=== PATIENT | male | born 1995 | race Caucasian/White ===

== ENCOUNTER 2017-10-05 17:46 | Observation (INO) | payer OTHER ==
[2017-10-05] MEDS ORDERED: fentaNYL 100 MCG/2 ML INJ IVP ONE (18:07)
[2017-10-05] MEDS ORDERED: NS 1,000 ML IV ONE (18:07)
[2017-10-05] MEDS ORDERED: ONDANSETRON 4 MG/2 ML VIAL IVP ONE (18:08)
[2017-10-05 18:21] LABS: % IMMATURE GRANULYOCYTES 0.2 % (0.0-1.1); ABSOLUTE IMMATURE GRANULOCYTES 0.02 10^3/uL (0.00-0.10); ADD DIFF? NO; ADD MORPH? NO; ADD SCAN? NO; ATYPICAL LYMPHOCYTE FLAG 0 (0-99); FRAGMENT RBC FLAG 0 (0-99); HEMATOCRIT 42.8 % (40.0-51.0); HEMOGLOBIN 15.7 g/dL (13.7-17.5); LEFT SHIFT FLG 0 (0-99); LIPEMIA HEMOLYSIS FLAG 90 (0-99); MEAN CELL HEMOGLOBIN 33.1 pg (27.9-34.1); MEAN CELL HEMOGLOBIN CONCENTR. 36.7 g/dL (32.4-36.7); MEAN CELL VOLUME 90.1 fL (81.5-99.8); MEAN PLATELET VOLUME 8.7 fL (8.7-11.7); PLATELET CLUMPS FLAG 10 (0-99); PLATELET COUNT 225 10^3/uL (150-400); RED BLOOD CELL COUNT 4.75 10^6/uL (4.40-6.38); RED CELL DISTRIBUTION WIDTH 11.9 % (11.5-15.2)
[2017-10-05] MEDS ORDERED: IOPAMIDOL (ISOVUE-300) 100 ML BTL ONE (18:24)
[2017-10-05 18:39] LABS: ANION GAP 16 mEq/L (8-16); CALCIUM 9.4 mg/dL (8.5-10.4); CARBON DIOXIDE 24 mEq/l (22-31); CHLORIDE 102 mEq/L (97-110); CREATININE 0.8 mg/dL (0.7-1.3); GLOMERULAR FILTRATION RATE > 60; GLUCOSE 91 mg/dL (70-100); POTASSIUM 4.2 mEq/L (3.5-5.2); SODIUM 142 mEq/L (134-144)
[2017-10-05] MEDS ORDERED: ERTAPENEM 1 GM VIAL IVP ONE (19:44)
[2017-10-05] MEDS ORDERED: HYDROmorphONE/DILAUDID 2 MG/ML INJ IVP ONE (20:04)
--- NOTE | 2017-10-05 20:04 | EDPHY ---
H & P Stated Complaint: ABD PAIN Time Seen by Provider: 10/05/17 17:50 HPI/ROS: CHIEF COMPLAINT: Abdominal pain HISTORY OF PRESENT ILLNESS: 22-year-old male reports that he woke up around 3 o 'clock in the morning (18 hr ago) with generalized abdominal pain, nausea, vomiting x1. He is really unable to get a good night sleep. As the morning progressed the pain seemed to radiate to the right mid quadrant. No fever. No further vomiting. Patient does feel somewhat nauseous. No diarrhea. Relatively normal appetite and the patient had a full dinner at 4:00 p.m. Patient reports is uncomfortable driving to the emergency department. He feels better when he is somewhat curled up. No urinary complaints. No hematuria. No testicular pain. Patient has otherwise been well. No recent fevers or chills, no recent upper respiratory infection, chest pain, cough, shortness of breath, palpitations, diarrhea, or other symptoms. REVIEW OF SYSTEMS: Aside from elements discussed in the HPI, a comprehensive 10-point review of systems was reviewed and is negative. PAST MEDICAL HISTORY: Denies. No prior surgeries. SOCIAL HISTORY: 1 alcoholic beverage last night. No illicit drug use. VITAL SIGNS Reviewed by me. GENERAL: Well-developed, well-nourished, resting comfortably in no respiratory distress. HEENT: Atraumatic. Eyes: No icterus, no injection. Mouth: moist mucous membranes. No erythema or lesions. Neck: supple with no adenopathy. LUNGS: Clear to auscultation bilaterally, no wheezes, rhonchi or rales. CARDIAC: Regular rate and rhythm, no rubs, murmurs or gallops. ABDOMEN: Soft, tenderness in the right mid and lower quadrants. No guarding or rebound. No distension. : Normal male exam. No testicular tenderness, swelling. BACK: No CVA tenderness. EXTREMITIES: No trauma. No edema. Range of motion is normal throughout. NEURO: Alert and oriented, grossly nonfocal. SKIN: Warm and dry, no rash. PSYCHIATRIC: Normal mentation, no agitation. - Personal History Tetanus Vaccine Date: WITHIN 10 YRS - Medical/Surgical History Hx Asthma: No Hx Chronic Respiratory Disease: No Hx Diabetes: No Hx Cardiac Disease: No Hx Renal Disease: No Hx Cirrhosis: No Hx Alcoholism: No Hx HIV/AIDS: No Hx Splenectomy or Spleen Trauma: No Other PMH: DENIES PMH/PSH - Social History Smoking Status: Never smoked Constitutional: Initial Vital Signs Temperature (C) 36.7 C 10/05/17 17:50 Heart Rate 98 10/05/17 17:50 Respiratory Rate 16 10/05/17 17:50 Blood Pressure 133/66 H 10/05/17 17:50 O2 Sat (%) 94 10/05/17 17:50 O2 Delivery Mode Room Air Allergies/Adverse Reactions: No Known Allergies Allergy (Verified 10/05/17 17:59) Home Medications: Medication Instructions Recorded No Medications [NO HOME 1 ea [facility] 12/15/11 MEDICATIONS] Medical Decision Making - Diagnostics Imaging Results: Imaging Impressions Abdomen CT 10/05/17 18:07 Impression: 1. Appendicitis suspected right upper iliac fossa with the appendix extending superiorly to the lower margin of the liver with periappendiceal inflammatory change. 2. Mild stable borderline splenomegaly. Findings discussed with Jessika Ingram MD at 19:34 hour, 10/05/2017. ED Course/Re-evaluation: 22-year-old male with less than 24 hr history of abdominal pain which has been persistent now in the right lower quadrant. Concern for appendicitis. IV was placed in the patient received fentanyl for pain, and Zofran for nausea. CBC and chemistries are unremarkable. CT scan is positive for appendicitis. Patient's course was discussed with Dr. Franklyn Holland. Patient was transferred POV to [facility] for admission to [facility] with operative intervention planned for later this evening. Patient is aware that he is NPO. Invanz was given prior to transfer. Differential Diagnosis: After obtaining the patient's history and performing an examination, differential diagnosis considered included but was not limited to appendicitis, cholecystitis, gastroenteritis, mesenteric adenitis, kidney stones, bowel obstruction, urinary tract infections and other causes. Consult/Admit Bed Type: Dr. Franklyn Holland, [facility] - Data Points Laboratory Results: Laboratory Results 10/05/17 18:14 10/05/17 18:14 10/05/17 10/05/17 18:14 18:14 WBC 8.85 10^3/uL 10^3/uL (3.80-9.50) RBC 4.75 10^6/uL 10^6/uL (4.40-6.38) Hgb 15.7 g/dL g/dL (13.7-17.5) Hct 42.8 % % (40.0-51.0) MCV 90.1 fL fL (81.5-99.8) MCH 33.1 pg pg (27.9-34.1) MCHC 36.7 g/dL g/dL (32.4-36.7) RDW 11.9 % % (11.5-15.2) Plt Count 225 10^3/uL 10^3/uL (150-400) MPV 8.7 fL fL (8.7-11.7) Neut % (Auto) 75.4 % H % (39.3-74.2) Lymph % (Auto) 12.8 % L % (15.0-45.0) Cole % (Auto) 9.7 % % (4.5-13.0) Eos % (Auto) 1.4 % % (0.6-7.6) Baso % (Auto) 0.5 % % (0.3-1.7) Nucleat RBC Rel Count 0.0 % % (0.0-0.2) Absolute Neuts (auto) 6.68 10^3/uL H 10^3/uL (1.70-6.50) Absolute Lymphs (auto) 1.13 10^3/uL 10^3/uL (1.00-3.00) Absolute Monos (auto) 0.86 10^3/uL H 10^3/uL (0.30-0.80) Absolute Eos (auto) 0.12 10^3/uL 10^3/uL (0.03-0.40) Absolute Basos (auto) 0.04 10^3/uL 10^3/uL (0.02-0.10) Absolute Nucleated RBC 0.00 10^3/uL 10^3/uL (0-0.01) Immature Gran % 0.2 % % (0.0-1.1) Immature Gran # 0.02 10^3/uL 10^3/uL (0.00-0.10) Sodium 142 mEq/L mEq/L (134-144) Potassium 4.2 mEq/L mEq/L (3.5-5.2) Chloride 102 mEq/L mEq/L (97-110) Carbon Dioxide 24 mEq/l mEq/l (22-31) Anion Gap 16 mEq/L mEq/L (8-16) BUN 11 mg/dL mg/dL (7-23) Creatinine 0.8 mg/dL mg/dL (0.7-1.3) Estimated GFR > 60 Glucose 91 mg/dL mg/dL (70-100) Calcium 9.4 mg/dL mg/dL (8.5-10.4) Lipase 119 IU/L IU/L (23-300) Medications Given: Discontinued Medications Ertapenem (Invanz) 1 gm IVP EDNOW ONE PRN Reason: Protocol Stop: 10/05/17 19:45 Last Admin: 10/05/17 19:59 Dose: 1 gm Fentanyl (Sublimaze) 75 mcg IVP EDNOW ONE Stop: 10/05/17 18:08 Last Admin: 10/05/17 18:31 Dose: 75 mcg Sodium Chloride (Ns) 1,000 mls @ 0 mls/hr IV EDNOW ONE; Wide Open PRN Reason: Protocol Stop: 10/05/17 18:08 Last Admin: 10/05/17 18:15 Dose: 1,000 mls Ondansetron HCl (Zofran) 4 mg IVP EDNOW ONE Stop: 10/05/17 18:09 Last Admin: 10/05/17 18:29 Dose: 4 mg Departure - Departure Disposition: [facility] Inpatient Acute Clinical Impression: Acute appendicitis Qualifiers: Acute appendicitis type: unspecified acute appendicitis type Qualified Code(s) : K35.80 - Unspecified acute appendicitis Abdominal pain Qualifiers: Abdominal location: right lower quadrant Qualified Code(s): R10.31 - Right lower quadrant pain Condition: Fair
[2017-10-05] MEDS ORDERED: HYDROmorphONE/DILAUDID 1 MG/ML INJ ONE (20:06)
--- NOTE | 2017-10-05 21:20 | PDGENHP ---
History and Physical - Chief Complaint abd pain - History of Present Illness 22 y/o male with abdominal pain since 03:30 AM pain localized to the RLQ he presented to the [facility] and was seen by Dr. Ingram and surgical consultation was requested He has had mild nausea and ate a full meal at 1600. History Information - Allergies/Home Medication List Allergies/Adverse Reactions: No Known Allergies Allergy (Verified 10/05/17 17:59) Home Medications: NK [No Known Home Meds] 10/05/17 [Last Taken Unknown] I have personally reviewed and updated: family history, medical history, social history, surgical history - Surgical History Additional surgical history: wisdom tooth extraction - Social History Smoking Status: Never smoked Alcohol Use: Occasionally Additional social history: works at [employer]/student. here with family Review of Systems Review of Systems: Respiratory: Reports: no symptoms Gastrointestinal: Reports: abdominal pain, nausea Genitourinary: Reports: no symptoms Muscolosketal: Reports: no symptoms Physical Exam Physical Exam: Temp Pulse Resp BP Pulse Ox 36.8 C 71 16 116/74 93 10/05/17 21:03 10/05/17 21:03 10/05/17 21:03 10/05/17 21:03 10/05/17 21:03 Constitutional: no apparent distress Eyes: anicteric sclera Ears, Nose, Mouth, Throat: other (no adenopathy) Cardiovascular: regular rate and rhythym Respiratory: no respiratory distress, no rales or rhonchi, clear to auscultation Gastrointestinal: normoactive bowel sounds, other (tender RLQ to percussion/ palpation, minimal guarding, + Rovsing's) Neurologic: AAOx3 Psychiatric: interacting appropriately, not anxious Lymph, Heme, Immunologic: no supraclavicular LAD Lab Data & Imaging Review 10/05/17 18:14 10/05/17 18:14 WBC 8.85 10^3/uL (3.80-9.50) 10/05/17 18:14 RBC 4.75 10^6/uL (4.40-6.38) 10/05/17 18:14 Hgb 15.7 g/dL (13.7-17.5) 10/05/17 18:14 Hct 42.8 % (40.0-51.0) 10/05/17 18:14 MCV 90.1 fL (81.5-99.8) 10/05/17 18:14 MCH 33.1 pg (27.9-34.1) 10/05/17 18:14 MCHC 36.7 g/dL (32.4-36.7) 10/05/17 18:14 RDW 11.9 % (11.5-15.2) 10/05/17 18:14 Plt Count 225 10^3/uL (150-400) 10/05/17 18:14 MPV 8.7 fL (8.7-11.7) 10/05/17 18:14 Neut % (Auto) 75.4 % (39.3-74.2) H 10/05/17 18:14 Lymph % (Auto) 12.8 % (15.0-45.0) L 10/05/17 18:14 [place] % (Auto) 9.7 % (4.5-13.0) 10/05/17 18:14 Eos % (Auto) 1.4 % (0.6-7.6) 10/05/17 18:14 Baso % (Auto) 0.5 % (0.3-1.7) 10/05/17 18:14 Nucleat RBC Rel Count 0.0 % (0.0-0.2) 10/05/17 18:14 Absolute Neuts (auto) 6.68 10^3/uL (1.70-6.50) H 10/05/17 18:14 Absolute Lymphs (auto) 1.13 10^3/uL (1.00-3.00) 10/05/17 18:14 Absolute Monos (auto) 0.86 10^3/uL (0.30-0.80) H 10/05/17 18:14 Absolute Eos (auto) 0.12 10^3/uL (0.03-0.40) 10/05/17 18:14 Absolute Basos (auto) 0.04 10^3/uL (0.02-0.10) 10/05/17 18:14 Absolute Nucleated RBC 0.00 10^3/uL (0-0.01) 10/05/17 18:14 Immature Gran % 0.2 % (0.0-1.1) 10/05/17 18:14 Immature Gran # 0.02 10^3/uL (0.00-0.10) 10/05/17 18:14 Sodium 142 mEq/L (134-144) 10/05/17 18:14 Potassium 4.2 mEq/L (3.5-5.2) 10/05/17 18:14 Chloride 102 mEq/L (97-110) 10/05/17 18:14 Carbon Dioxide 24 mEq/l (22-31) 10/05/17 18:14 Anion Gap 16 mEq/L (8-16) 10/05/17 18:14 BUN 11 mg/dL (7-23) 10/05/17 18:14 Creatinine 0.8 mg/dL (0.7-1.3) 10/05/17 18:14 Estimated GFR > 60 10/05/17 18:14 Glucose 91 mg/dL (70-100) 10/05/17 18:14 Calcium 9.4 mg/dL (8.5-10.4) 10/05/17 18:14 Lipase 119 IU/L (23-300) 10/05/17 18:14 Assessment & Plan Assessment: Abdominal pain (Acute) Acute appendicitis (Acute) Plan: I recommended lap appendectomy We discussed the procedure, risks and expected recovery. Informed consent was obtained
[2017-10-05] MEDS ORDERED: ONDANSETRON 4 MG/2 ML VIAL IVP PRN (21:22)
[2017-10-05] MEDS ORDERED: HYDROmorphone HCL/NS/PF 0.4 MG/2 ML SYR IVP PRN (21:22)
[2017-10-05] MEDS ORDERED: LR 1,000 ML IV SCH (21:30)
[2017-10-05] MEDS ORDERED: BUPIVACAINE 0.25% 30 ML SDV ONE (22:31)
[2017-10-05] MEDS ORDERED: LR 1,000 ML IV ONE (23:39)
[2017-10-05] MEDS ORDERED: MIDAZOLAM 2 MG/2 ML VIAL ONE (23:47)
[2017-10-05] MEDS ORDERED: MIDAZOLAM 2 MG/2 ML VIAL IVP ONE (23:50)
--- NOTE | 2017-10-05 23:51 | PDANEPAE ---
ANE History of Present Illness lap appy ANE Past Medical History - Cardiovascular History Hx Hypertension: No Hx Arrhythmias: No Hx Chest Pain: No Hx Coronary Artery / Peripheral Vascular Disease: No Hx CHF / Valvular Disease: No Hx Palpitations: No - Pulmonary History Hx COPD: No Hx Asthma/Reactive Airway Disease: No Hx Recent Upper Respiratory Infection: No Hx Oxygen in Use at Home: No Hx Sleep Apnea: No Sleep Apnea Screening Result - Last Documented: Negative - Neurologic History Hx Cerebrovascular Accident: No Hx Seizures: No Hx Dementia: No - Endocrine History Hx Diabetes: No Hypothyroid: No Hyperthyroid: No Obesity: no - Renal History Hx Renal Disorders: No - Liver History Hx Hepatic Disorders: No - Neurological & Psychiatric Hx Hx Neurological and Psychiatric Disorders: No - Surgical History Prior Surgeries: wisdom tooth extraction ANE Review of Systems Review of Systems: - Exercise capacity METS (RN): 4 METS ANE Patient History - Allergies Allergies/Adverse Reactions: No Known Allergies Allergy (Verified 10/05/17 17:59) - Home Medications Home Medications: NK [No Known Home Meds] 10/05/17 [Last Taken Unknown] - NPO status NPO Status: no food or drink >8 hours NPO Since - Liquids (Date): 10/05/17 NPO Since - Liquids (Time): 16:00 NPO Since - Solids (Date): 10/05/17 NPO Since - Solids (Time): 16:00 - Anes Hx Anes Hx: no prior problems - Smoking Hx Smoking Status: Never smoked - Alcohol Use Alcohol Use: Occasionally ANE Labs/Vital Signs - Labs Result Diagrams: 10/05/17 18:14 10/05/17 18:14 - Vital Signs Blood Pressure: 111/67 Heart Rate: 71 Respiratory Rate: 16 O2 Sat (%): 96 Height: 185.42 cm Weight: 78.925 kg ANE Physical Exam - Airway Mallampati Score: Class 2 Mouth exam: normal dental/mouth exam - Pulmonary Pulmonary: no respiratory distress - Cardiovascular Cardiovascular: regular rate and rhythym - ASA Status ASA Status: I ANE Anesthesia Plan Anesthesia Plan: general endotracheal anesthesia
[2017-10-05] MEDS ORDERED: LIDOCAINE 2% 5 ML SDV ONE (23:54)
[2017-10-05] MEDS ORDERED: ROCURONIUM 50 MG/5 ML VIAL ONE (23:54)
[2017-10-05] MEDS ORDERED: PROPOFOL 200 MG/20 ML VIAL ONE (23:54)
[2017-10-05] MEDS ORDERED: fentaNYL 100 MCG/2 ML INJ ONE (23:54)
[2017-10-05] MEDS ORDERED: DEXAMETHASONE 4 MG/ML VIAL ONE (23:55)
[2017-10-05] MEDS ORDERED: KETOROLAC 30 MG/1 ML SDV ONE (23:55)
[2017-10-05] MEDS ORDERED: ONDANSETRON 4 MG/2 ML VIAL ONE (23:55)
[2017-10-06] MEDS ORDERED: SUGAMMADEX SODIUM 500 MG/5 ML VIAL IVP ONE (00:19)
[2017-10-06] MEDS ORDERED: fentaNYL 100 MCG/2 ML INJ IVP PRN (00:54)
[2017-10-06] MEDS ORDERED: ALBUTEROL 3 ML DEYVIAL IH PRN (00:54)
[2017-10-06] MEDS ORDERED: HYDROmorphONE/DILAUDID 1 MG/ML INJ IVP PRN (00:54)
[2017-10-06] MEDS ORDERED: NALOXONE HCL 0.4 MG/ML INJ IVP PRN (00:54)
[2017-10-06] MEDS ORDERED: LR 500 ML IV PRN (00:54)
[2017-10-06] MEDS ORDERED: ONDANSETRON 4 MG/2 ML VIAL IVP PRN (00:54)
[2017-10-06] MEDS ORDERED: MEPERIDINE 25 MG/ML SYR IVP PRN (00:54)
--- NOTE | 2017-10-06 01:10 | POSTANESTH ---
Post Anesthetic Evaluation Cardiovascular Status: Normal, Stable Respiratory Status: Normal, Stable Level of Consciousness/Mental Status: Can Participate in Eval Pain Control: Adequate, Prn Tx Ordered Nausea/Vomiting Control: Adequate, Prn Tx Ordered Complications Possibly Related to Anesthesia: None Noted
--- NOTE | 2017-10-06 01:16 | POSTOPPROG ---
Post Op Note Date of Operation: 10/06/17 Surgeon: Franklyn Holland (, FACS) Anesthesiologist: Jaron Thomason MD Anesthesia: GET(General Endotracheal) Pre-op Diagnosis: acute appendicitis Post-op Diagnosis: acute on chronic appendicitis Procedure: lap appendectomy Findings: retrocecal appendix with acute and chronic inflammation Inf/Abcess present in the surg proc area at time of surgery?: Yes Depth: Organ Space EBL: Minimal (10 ml) Specimen(s): appendix
[2017-10-06] MEDS ORDERED: HYDROmorphone HCL/NS/PF 0.4 MG/2 ML SYR IVP PRN (01:17)
[2017-10-06] MEDS ORDERED: METOCLOPRAMIDE 10 MG/2 ML VIAL IVP PRN (01:17)
[2017-10-06] MEDS ORDERED: LR 1,000 ML IV SCH (01:30)
[2017-10-06 01:41] VITALS: RESP 16
--- NOTE | 2017-10-06 03:17 | GOP ---
[f rep st] OPERATIVE REPORT DATE OF OPERATION: 10/06/2017 SURGEON: Franklyn Holland MD, FACS ANESTHESIA: General endotracheal. ANESTHESIOLOGIST: Jaron Thomason MD. PREOPERATIVE DIAGNOSIS: Acute appendicitis. POSTOPERATIVE DIAGNOSIS: Acute and chronic retrocecal appendicitis. PROCEDURE PERFORMED: Laparoscopic appendectomy. FINDINGS: Retrocecal appendix with the tip of the appendix terminating below the edge of the liver and cephalad to the hepatic flexure, immediately anterior to the kidney and just lateral to the gallbladder. Mild acute inflammation as well as chronic inflammatory changes suggesting possible prior attacks. Adhesions between the gallbladder and transverse colonic omentum. ESTIMATED BLOOD LOSS: 10 mL. DESCRIPTION OF PROCEDURE: After informed consent was obtained, the patient was brought to the operating room and placed under general anesthesia. The abdomen was prepped and draped in usual fashion. Before proceeding, a time-out and identification of the patient was performed. 0.25% Marcaine was used to infiltrate all incision sites. A longitudinal incision was made through the base of the umbilicus and dissection carried down to the fascia. Ventral traction was applied to the abdominal wall with a penetrating towel clamp and a Veress needle was introduced into the peritoneal cavity. Position was confirmed by saline infusion. A pneumoperitoneum was established with CO2 gas to a pressure of 15 mmHg. The Veress needle was withdrawn and replaced with a 5 mm bladeless trocar. A 30 degree 5 mm scope was introduced in the peritoneal cavity was visualized. Additional 5 mm port was placed in the suprapubic position and a 12 mm port was placed in the left lower quadrant. This allowed introduction of atraumatic grasping forceps. The appendix was identified near the base where it joined the cecum. The remainder of the appendix however was completely retrocecal. Dissection was carried out with the Harmonic Scalpel mobilizing the peritoneum lateral to the colon and mobilizing the appendix from its retrocecal position. The perineum surrounding the appendix was acutely inflamed but also showed some evidence of chronic scarring. Dissection was carried out to the tip of the appendix which terminated just below the liver edge and above the hepatic flexure, anterior to the kidney, lateral to the gallbladder and duodenum. There were some chronic inflammatory changes around the gallbladder as well with adhesions to the transverse colon and omentum. This was left undisturbed. The mesoappendix was taken down with the Harmonic Scalpel for hemostasis, and after this had been completed the appendix was from the cecum with a single firing of the EDVIN stapler. This was retrieved through the left lower quadrant port site using an Endo pouch. The operative field appeared hemostatic. The area was irrigated and aspirated until the effluent was clear. Hemostasis appeared secure. The left lower quadrant port site was closed with a transfascial closure needle and 0 Vicryl suture. The pneumoperitoneum was evacuated and the remaining ports were removed. Subcutaneous tissues and skin were closed with 4- 0 Monocryl suture in a subcuticular fashion. Topical Dermabond was applied. The patient was returned extubated to the recovery room in satisfactory condition. Needle, sponge, and instrument count were correct. /[id number]/MODL MTDD
[2017-10-06] MEDS ORDERED: IBUPROFEN 600 MG TAB PO SCH (06:00)
--- NOTE | 2017-10-06 07:00 | PDDCSUM ---
Discharge Summary Discharge Summary: DOA 10/05 DOD 10/06/17 DC Dx: Acute appendicitis Procedures: 10/06 lap appendectomy Alejo was admitted for lap appendectomy for early appendicitis. Surgery was delayed until midnight to allow for gastric emptying. His appendix was retrocecal and acutely and chronically inflammed. He received one dose of Ertapenam pre-op. He had an unremarkable post op course and was to be discharged later today. We discussed activity, wound care and follow up Work excuse notes were generated. FU my office Oct 13, 2017 DC meds: [place] 5/325 #20 Ibuprofen 600 mg #30 S MD Amalia, FACS
[2017-10-06] MEDS: HYDROCODONE/APAP 5/325 TAB PO PRN ×2 (08:23→08:57)
[2017-10-06 08:46] VITALS: BP 124/83; PULSE 60; TEMP 97.6; O2SAT 95
--- NOTE | 2017-10-06 10:05 | ASDISCHSUM ---
Discharge Information Plan Status:Home with No Needs Medically Cleared to Leave: Discharge Date:10/06/2017 09:17 AM CM D/C Disposition:Home, Routine, Self-Care ADT D/C Disposition:Home, Routine, Self-Care Projected Discharge Date:10/06/2017 09:17 AM Transportation at D/C:Family Discharge Delay Reason: Follow-Up Date:10/06/2017 09:17 AM Discharge Slot: Final Diagnosis: Placement Information Patient Contact Information Contact Name:RENEE Relationship:Father Address:[address] City:[place] Phone: State/Zip Code:[place] [address] Email: Financial Information Financial Class:[facility] Primary Plan Desc:[facility] Primary Plan Number:[id number] Secondary Plan Desc: Secondary Plan Number: Assessment Information Intervention Information
== END 2017-10-06 09:17 | disposition home or self-care (01) ==
LOC: CED 17:46 → CEDHOLD 19:44 → F3E 20:59
PROVIDERS: ADMIT Surgery; ATTEND Surgery
PROC: 0DTJ4ZZ Resection of Appendix, Percutaneous Endoscopic Approach (ICD-10-PCS; principal; 2017-10-05)
DX: K36 Other appendicitis (principal)
CPT/HCPCS: 44970; 74177; G0378; 80048-PO; 83690-PO; 85025-PO; 96374; J1100; J1170; J1335; J1885; J2250; J2405; J2704; J3010; Q9967